=== PATIENT | female | born 1935 | race Caucasian/White ===

== ENCOUNTER 2018-08-05 17:52 | Emergency (ER) | payer MEDICARE, BC ==
[2018-08-05] MEDS ORDERED: ASPIRIN 81 MG TABLET, CHEWABLE PO ONE (17:53)
[2018-08-05 18:22] LABS: ABSOLUTE LYMPHOCYTES (AUTO) 1.5 10^3/uL (0.5-4.7); ABSOLUTE MONOCYTES (AUTO) 1.3 10^3/uL (0.1-1.4); ABSOLUTE NEUT (AUTO) 9.1 10^3/uL (1.7-8.2); BASOPHILS % (AUTO) 0.2 % (0-2); EOSINOPHILS % (AUTO) 0.1 % (0-6); HEMATOCRIT 37.6 % (36.0-47.0); LYMPHOCYTES % (AUTO) 12.4 % (13-45); MEAN CORPUSCULAR HEMOGLOBIN 29.5 pg (27.0-33.4); MEAN CORPUSCULAR HGB CONC 34.5 g/dL (32.0-36.0); MEAN CORPUSCULAR VOLUME 86 fl (80-97); MONOCYTES % (AUTO) 10.7 % (3-13); PLATELET COUNT 262 10^3/uL (150-450); RED BLOOD COUNT 4.39 10^6/uL (3.72-5.28); RED CELL DISTRIBUTION WIDTH 14.2 % (11.5-14.0); SEGMENTED NEUTROPHILS % (AUTO) 76.6 % (42-78); TOTAL CELLS COUNTED % (AUTO) 100 %; WHITE BLOOD COUNT 11.9 10^3/uL (4.0-10.5)
--- NOTE | 2018-08-05 18:22 | RADIOLOGY REPORT (SQ) ---
EXAM DESCRIPTION: CHEST SINGLE VIEW COMPLETED DATE/TIME: 08/05/2018 6:14 pm REASON FOR STUDY: cp COMPARISON: None. EXAM PARAMETERS: NUMBER OF VIEWS: One view. TECHNIQUE: Single frontal radiographic view of the chest acquired. RADIATION DOSE: NA LIMITATIONS: None. FINDINGS: LUNGS AND PLEURA: No opacities, masses or pneumothorax. No pleural effusion. MEDIASTINUM AND HILAR STRUCTURES: Large hiatal hernia projection in the chest. HEART AND VASCULAR STRUCTURES: Heart normal in size. Normal vasculature. BONES: No acute findings. HARDWARE: None in the chest. OTHER: No other significant finding. IMPRESSION: Large hiatal hernia projecting in the chest. TECHNICAL DOCUMENTATION: JOB ID: [id number] [employer]- All Rights Reserved Reading location - IP/workstation name: [email or web address]
--- NOTE | 2018-08-05 18:31 | EKG REPORT ---
SEVERITY:- BORDERLINE ECG - SINUS RHYTHM CONSIDER ANTERIOR INFARCT BORDERLINE PROLONGED QT INTERVAL : Confirmed by: Kwesi Bonilla MD 05-Aug-2018 18:30:45
[2018-08-05] MEDS ORDERED: NORMAL SALINE 500 ML IV ONE (18:37)
[2018-08-05] MEDS ORDERED: NITROGLYCERIN/D5W 50 MG/250 ML RTUINJ IV PRN (18:38)
[2018-08-05] MEDS ORDERED: MORPHINE SULFATE 10 MG/ML INJ IV ONE (18:38)
[2018-08-05 18:39] LABS: ALANINE AMINOTRANSFERASE 29 U/L (9-52); ALBUMIN 3.7 g/dL (3.5-5.0); ALKALINE PHOSPHATASE 77 U/L (38-126); ANION GAP 10 (5-19); ASPARTATE AMINO TRANSFERASE 180 U/L (14-36); BILIRUBIN,DIRECT 0.1 mg/dL (0.0-0.4); BILIRUBIN,TOTAL 0.6 mg/dL (0.2-1.3); BLOOD UREA NITROGEN 27 mg/dL (7-20); CALCIUM 8.9 mg/dL (8.4-10.2); CARBON DIOXIDE 25 mmol/L (22-30); CHLORIDE 103 mmol/L (98-107); CREATINE KINASE 1457 U/L (30-135); GLUCOSE 121 mg/dL (75-110); POTASSIUM 4.5 mmol/L (3.6-5.0); SODIUM 138.1 mmol/L (137-145); TOTAL PROTEIN 6.6 g/dL (6.3-8.2)
[2018-08-05 18:52] LABS: TROPONIN I 42.9 ng/mL
[2018-08-05] MEDS ORDERED: NITROGLYCERIN/D5W 50 MG/250 ML RTUINJ IV ONE (18:53)
--- NOTE | 2018-08-05 19:11 | ER Document Report ---
ED Cardiac - General Chief Complaint: Chest Pain Stated Complaint: CHEST PAIN Time Seen by Provider: 08/05/18 18:08 Mode of Arrival: Medic Information source: Patient Notes: This is an 83-year-old female with a known hiatal hernia, peptic ulcer disease, dyslipidemia who was usual state of health until 10 AM this morning when she developed sudden 10/10 sharp pain to the back (between the shoulder blades) which was associated with shortness of breath and nausea. Patient states that it stayed at this intensity until about 1:30 PM when it started to lessen. Patient states it never fully went away and she went to the primary care doctor' s office at approximately 5 PM today and she was referred to the emergency room. At this time, she states she has a little discomfort (2 out of 10) which is dull and in the retrosternal area. She denies of any discomfort in the back. She denies any shortness of breath at this time. She denies any abdominal pain. TRAVEL OUTSIDE OF THE [place] IN LAST 30 DAYS: No - HPI Patient complains to provider of: Chest pain Use of: denies: Alcohol, Amphetamines, Bath salts, Caffeine, Cocaine, Decongestants, Other Was the onset of pain: Sudden Is the pain a: New problem Chest pain location: Substernal, Back Quality of pain: Dull, Tightness Chest pain radiation location: Back Severity now: Mild Severity at worst: Severe Pain level currently: 1 Chest pain precipitating factors: Light activity Cardiac risk factors: Dyslipidemia Associated symptoms: Nausea/vomiting, Shortness of breath Exacerbated by: Denies Relieved by: Nothing Similar symptoms previously: No Recently seen / treated by doctor: No - Related Data Allergies/Adverse Reactions: codeine [Codeine] Allergy (Verified 05/05/12 15:34) Penicillins Allergy (Verified 05/05/12 15:34) Past Medical History - General Information source: Patient - Social History Smoking Status: Never Smoker Cigarette use (# per day): No Chew tobacco use (# tins/day): No Frequency of alcohol use: None Drug Abuse: None Lives with: Alone Family History: None Patient has suicidal ideation: No Patient has homicidal ideation: No - Past Medical History Cardiac Medical History: Reports: Hx Hypercholesterolemia Pulmonary Medical History: Reports: None EENT Medical History: Reports: None Neurological Medical History: Reports: None Endocrine Medical History: Reports: None Renal/ Medical History: Reports: None GI Medical History: Reports: Other - Ischemic colitis Musculoskeletal Medical History: Reports None Skin Medical History: Reports None Psychiatric Medical History: Reports: Hx Depression Traumatic Medical History: Reports: None Infectious Medical History: Reports: None Past Surgical History: Reports: Hx Cholecystectomy, Hx Herniorrhaphy, Hx Hysterectomy - Immunizations Hx Diphtheria, Pertussis, Tetanus Vaccination: No Review of Systems - Review of Systems Constitutional: denies: Chills, Fever EENT: No symptoms reported Cardiovascular: See HPI Respiratory: No symptoms reported Gastrointestinal: No symptoms reported Genitourinary: No symptoms reported Female Genitourinary: No symptoms reported Musculoskeletal: No symptoms reported Skin: No symptoms reported Hematologic/Lymphatic: No symptoms reported Neurological/Psychological: No symptoms reported Physical Exam - Vital signs Vitals: Pulse Ox 97 08/05/18 17:52 Notes: Physical exam: GENERAL: Patient is alert and oriented x3, no acute distress, she does complain of 2 out of 10 discomfort in the retrosternal area. HEAD: Atraumatic, normocephalic. EYES: Pupils equal round and reactive to light, extraocular movements intact, sclera anicteric, conjunctiva are normal. ENT: TMs normal, nares patent, oropharynx clear without exudates. Moist mucous membranes. NECK: Normal range of motion, supple without obvious mass or JVD. LUNGS: Breath sounds clear to auscultation bilaterally and equal. No wheezes rales or rhonchi. HEART: Regular rate and rhythm without murmurs, rubs or gallops. ABDOMEN: Soft, normoactive bowel sounds. No tenderness to palpation. No guarding, no rebound. No masses appreciated. EXTREMITIES: Normal range of motion, no pitting or edema. No clubbing or cyanosis. Patient's pulses are 2+ bilateral radial. Patient's dorsal pedal pulses are good bilaterally. Her extremities are warm with good cap refill. NEUROLOGICAL: Cranial nerves II through XII grossly intact. Normal speech, moving all extremities. PSYCH: Normal mood, normal affect. SKIN: Warm, Dry, normal turgor, no rashes or lesions noted. Course - Re-evaluation Re-evalutation: 08/05/18 19:11 Note: Patient was given aspirin by EMS. She was given nitroglycerin x2 by EMS. In the ER, she was placed on IV nitro drip. Her blood pressure is currently 111 /66. She was given a small amount of IV morphine. Discussed case with Dr. Gray (interventional cardiology in [place]): Will treat with IV heparin, Plavix. Patient will be transferred there. He agrees that patient does not meet EKG criteria for lytics (i.e STEMI) at this time. Discussed patient's symptoms: Given no clinical evidence of dissection, will hold off on dye load for now. Transport is here. Patient states that she has no pain at this time. In summary: She has received Aspirin 324 mg (by EMS) IV nitro IV heparin Plavix 300 mg orally Morphine 2 mg IV Patient's heart rate was 72 08/05/18 20:39 - Vital Signs Vital signs: Temp Pulse Resp BP Pulse Ox 99.5 F 77 23 H 105/69 98 08/05/18 20:25 08/05/18 19:32 08/05/18 20:25 08/05/18 20:25 08/05/18 20:25 - Laboratory Result Diagrams: 08/05/18 17:55 08/05/18 17:55 Laboratory results interpreted by me: 08/05/18 08/05/18 08/05/18 17:55 17:55 17:55 WBC 11.9 H RDW 14.2 H Lymphocytes % 12.4 L Absolute Neutrophils 9.1 H BUN 27 H Glucose 121 H AST 180 H Creatine Kinase 1457 H CK-MB (CK-2) 123.00 H - Diagnostic Test Radiology reviewed: Image reviewed, Reports reviewed - Chest x-ray shows no obvious infiltrates. There is a large hiatal hernia. - EKG Interpretation by Me Rate: Normal Rhythm: NSR - EKG shows normal sinus rhythm with a ventricular rate of 76, there is subtle ST changes but using the TP isoelectric point, she does not meet criteria for ST elevation [facility]. She does have loss of R waves anteriorly compared to an old EKG from the office in March 2013. She does have small Q's in V3-V6. Critical Care Note - Critical Care Note Total time excluding time spent on procedures (mins): 60 Discharge - Discharge Clinical Impression: Acute [facility] Condition: Serious Disposition: [facility] Referrals: COLETTE ANDERSON MD [NO LOCAL MD] - Follow up as needed
[2018-08-05] MEDS ORDERED: HEPARIN SODIUM,PORCINE/D5W 25,000 UNIT/250 ML RTUINJ IV PRN (19:28)
[2018-08-05] MEDS ORDERED: HEPARIN SOD (PORCINE) 1,000 UNIT/ML 10 ML VIAL IV ONE (19:28)
[2018-08-05] MEDS ORDERED: CLOPIDOGREL BISULFATE 300 MG TABLET PO ONE (19:31)
[2018-08-05 19:44] LABS: INTERNATIONAL RATION (INR) 0.96; PROTHROMBIN TIME 13.2 SEC (11.4-15.4)
[2018-08-05 19:45] LABS: PARTIAL THROMBOPLASTIN TIME 29.5 SEC (23.5-35.8)
[2018-08-05 20:30] VITALS: BP 105/69
--- NOTE | 2018-08-06 07:32 | EKG REPORT ---
SEVERITY:- BORDERLINE ECG - SINUS RHYTHM CONSIDER ANTERIOR INFARCT : Confirmed by: Kwesi Bonilla MD 06-Aug-2018 07:31:31
== END 2018-08-05 20:40 | disposition short-term general hospital (02) ==
LOC: ER 17:52
DX: I21.9 Acute myocardial infarction, unspecified (principal); R07.9 Chest pain, unspecified; M54.6 Pain in thoracic spine; R06.02 Shortness of breath; R11.2 Nausea with vomiting, unspecified
CPT/HCPCS: 93005; 96376; 99291; 96375; 96365; 96366; 96368; 36415; 82553; 82550; 85025; 85610; 85730; 80053; 84484; 71045; 93010; A9270; J1644 ×2; J2270; J3490; J7040

== ENCOUNTER → 2019-08-25 | Outpatient (CLI) | payer MEDICARE, BC ==
--- NOTE | 2019-08-26 15:37 | RADIOLOGY REPORT (SQ) ---
EXAM DESCRIPTION: VENOUS UNILATERAL LOWER COMPLETED DATE/TIME: 08/25/2019 2:10 pm REASON FOR STUDY: LLE SWELLING R22.42 LOCALIZED SWELLING, MASS AND LUMP, LEFT LOWER LIMB COMPARISON: None. TECHNIQUE: Dynamic and static mota scale and color images acquired of the left leg venous system. Se lected spectral images acquired with additional compression and augmentation maneuvers. The contralat eral common femoral vein and saphenofemoral junction were also imaged. Images stored on PACS. LIMITATIONS: None. FINDINGS: COMMON FEMORAL: Normal phasicity, compression and augmentation. No visualized echogenic ma terial on mota scale. No defects on color images. FEMORAL: Normal compression and augmentation. No visualized echogenic material on mota scale. No defe cts on color images. POPLITEAL: Normal compression, augmentation. No visualized echogenic material on mota scale. No defec ts on color images. CALF VESSELS: Normal compression, augmentation. No visualized echogenic material on mota scale. No de fects on color images. GSV and SSV: Normal compression, augmentation. No visualized echogenic material on mota scale. No def ects on color images. ANY DEEP VENOUS INSUFFICIENCY: Not evaluated. ANY EVIDENCE OF POPLITEAL CYST: No. OTHER: No other significant finding. CONTRALATERAL COMMON FEMORAL VEIN AND SAPHENOFEMORAL JUNCTION: Normal phasicity, compression and augmentation. No visualized echogenic material on mota scale. No de fects on color images. IMPRESSION: NO EVIDENCE OF DVT OR SVT IN THE LEFT LEG. TECHNICAL DOCUMENTATION: JOB ID: [id number] [employer]- All Rights Reserved Reading location - IP/workstation name: [email or web address]
== END ==
LOC: SP 13:21
PROVIDERS: ATTEND Family Medicine
DX: L02.91 Cutaneous abscess, unspecified (principal)
CPT/HCPCS: 93971